=== PATIENT | female | born 1990 | race Caucasian/White ===

== ENCOUNTER 2022-06-26 06:20 | Day surgery (SDC) | payer BC, OTHER ==
[~2022-06-26 06:20] MED LIST: Sodium Chloride 0.9% 10 ML Syringe FLUSH PRN; Sodium Chloride 0.9% 2.5 ML Syringe FLUSH PRN; Sodium Chloride 0.9% 20 ML SDV IV PRN; ceFAZolin 1 GM in Premix Bag 1 BAG IV ONE
[2022-06-26] MEDS ORDERED: fentaNYL 250 MCG/5 ML SDV ONE (07:23)
[2022-06-26] MEDS ORDERED: Midazolam 1 MG/ML 2 ML SDV ONE (07:23)
[2022-06-26] MEDS ORDERED: Ketamine 500 mg/10 ML MDV ONE (07:23)
[2022-06-26] MEDS ORDERED: Dexmedetomidine 200 MCG/2 ML SDV ONE (07:24)
[2022-06-26] MEDS ORDERED: Lidocaine 2% 5 ML SDV ONE (07:24)
[2022-06-26] MEDS ORDERED: propofoL 100 ML ONE (07:24)
[2022-06-26] MEDS ORDERED: Rocuronium Bromide 50 MG/5 ML Syringe ONE ×2 (07:25→09:05)
[2022-06-26] MEDS ORDERED: Magnesium Sulfate (4.06 MEQ/ML) 5 GM/10 ML SDV ONE (07:25)
[2022-06-26] MEDS ORDERED: Naloxone 0.4 MG/ML SDV IVPUSH PRN (07:26)
[2022-06-26] MEDS ORDERED: HYDROmorphone 1 MG/ML Syringe IVPUSH PRN (07:26)
[2022-06-26] MEDS ORDERED: Ondansetron 4 MG/2 ML SDV IVPUSH PRN ×2 (07:26→10:34)
[2022-06-26] MEDS ORDERED: Albuterol 0.083% 2.5 MG/3 ML Neb Soln NEB PRN (07:26)
[2022-06-26] MEDS ORDERED: Metoclopramide 10 MG/2 ML SDV IVPUSH PRN (07:26)
[2022-06-26] MEDS ORDERED: fentaNYL 50 MCG/ML SDV IVPUSH PRN (07:26)
[2022-06-26] MEDS: Lactated Ringers 1,000 ML IV SCH ×2 (07:29→12:25)
[2022-06-26] MEDS ORDERED: Methylene Blue 50 MG/10 ML Ampule ONE (07:30)
[2022-06-26] MEDS ORDERED: Bupivacaine 0.25% 30 ML SDV ONE (07:31)
[2022-06-26 07:35] LABS: CARBON DIOXIDE,CO2 26.7 mmol/L (21.0-32.0); POTASSIUM,K 3.9 mmol/L (3.5-5.1)
[2022-06-26] MEDS ORDERED: Fluorescein 5 ML Vial ONE (08:06)
[2022-06-26] MEDS ORDERED: Dexamethasone 4 MG/ML 5 ML MDV ONE (08:25)
[2022-06-26] MEDS ORDERED: Sugammadex Sodium 200 MG/2 ML VIAL ONE (08:35)
[2022-06-26] MEDS ORDERED: Ketorolac 30 MG/ML SDV ONE (08:35)
[2022-06-26] MEDS ORDERED: Ondansetron 4 MG/2 ML SDV ONE (08:35)
[2022-06-26] MEDS ORDERED: Furosemide 40 MG/4 ML VIAL ONE (08:35)
[2022-06-26] MEDS ORDERED: ePHEDrine 50 MG/ML SDV ONE (08:54)
[2022-06-26] MEDS ORDERED: Promethazine 25 MG/ML SDV IM PRN (10:34)
[2022-06-26] MEDS ORDERED: Acetaminophen/oxyCODONE 325-5 MG Tab PO PRN ×2 (10:34)
[2022-06-26] MEDS ORDERED: Ketorolac 30 MG/ML SDV IVPUSH ONE (10:34)
[2022-06-26] MEDS ORDERED: Belladonna Alkaloids/Opium 16.2-30 MG Supp RECTAL PRN (10:34)
[2022-06-26] MEDS ORDERED: Morphine 4 MG/ML VIAL IVPUSH PRN (10:34)
[2022-06-26] MEDS: Ketorolac 30 MG/ML SDV IVPUSH PRN ×2 (15:36→21:59)
[2022-06-26] MEDS: Docusate Sodium 100 MG Cap PO SCH (21:59)
[2022-06-27] MEDS: Acetaminophen 500 MG Tab PO PRN ×2 (00:31→08:04)
[2022-06-27 05:58] LABS: CARBON DIOXIDE,CO2 27.3 mmol/L (21.0-32.0)
[2022-06-27] MEDS: Docusate Sodium 100 MG Cap PO SCH (08:04)
== END 2022-06-27 09:39 | disposition home or self-care (01) ==
LOC: MW.SDS 06:20 → MW.OB 13:49 → MW.SDS 06-27 09:39
PROVIDERS: ATTEND Obstetrics & Gynecology
DX: N84.0 Polyp of corpus uteri (principal); N83.8 Other noninflammatory disorders of ovary, fallopian tube and broad ligament; Z90.49 Acquired absence of other specified parts of digestive tract; Z98.890 Other specified postprocedural states; Z79.899 Other long term (current) drug therapy; Z01.812 Encounter for preprocedural laboratory examination; Z20.822 Contact with and (suspected) exposure to COVID-19
CPT/HCPCS: 36415; 58552; 80048; 84703; 85025; 85027; 86850; 86900; 86901; 87635; A9270; J0131; J0690; J1100; J1170; J1885; J1940; J2250; J2704; J3010; J3475; J3490; J7030; J7120; 00944; J2405; U0002